=== PATIENT | female | born 1955 | race Two or more races ===

== ENCOUNTER 2018-12-21 06:30 | Day surgery (SDC) | payer OTHER ==
[~2018-12-21] VITALS: Ht 160 cm; Wt 57.1 kg
[2018-12-21] VITALS (10 sets, daily range): BP systolic 122–185; BP diastolic 56–75; PULSE 64–77; RESP 13–33; Ht 160 cm; Wt 57.1 kg
[~2018-12-21 06:30] MED LIST: BROMFENAC SODIUM 1.7 ML OPH DROP OPER SCH; LACTATED RINGER'S 1,000 ML IV SCH; MOXIFLOXACIN 0.5% 3 ML OPH OPER SCH; TETRACAINE 0.5% 4 ML OPH OPER SCH
[2018-12-21] MEDS ORDERED: BALANCED SALT SOLN 15 ML OPH IRRIG ONE (07:00)
[2018-12-21] MEDS ORDERED: LIDOCAINE 3.5% GEL TUBE OPER ONE (07:00)
[2018-12-21] MEDS ORDERED: PHENYLephrine 10% 5 ML OPH ONE (07:47)
[2018-12-21] MEDS ORDERED: TETRACAINE 0.5% 4 ML OPH ONE (07:48)
[2018-12-21] MEDS ORDERED: TOBRAMYCIN/DEXAMETH 3.5 GM OPH OINT ONE (07:48)
[2018-12-21] MEDS ORDERED: ONDANSETRON 4 MG INJ IV PRN (08:00)
[2018-12-21] MEDS ORDERED: FENTAnyl 50 MCG/ML VIAL IV PRN (08:00)
[2018-12-21] MEDS ORDERED: hydrALAzine 20 MG INJ IV PRN (08:00)
[2018-12-21] MEDS ORDERED: LABETALOL HCL 20MG INJ IV PRN (08:00)
[2018-12-21] MEDS ORDERED: ALBUTEROL 0.083% (NEB) 2.5 MG/3 ML AMP HHN PRN (08:00)
[2018-12-21] MEDS ORDERED: OXYCODONE/ACETAMINOPHEN (5/325) TAB PO PRN (08:00)
[2018-12-21] MEDS ORDERED: ACETAMINOPHEN 325 MG TAB PO PRN (08:00)
[2018-12-21] MEDS ORDERED: DIPHENHYDRAMINE 50 MG INJ IV PRN (08:00)
[2018-12-21] MEDS ORDERED: ACETAMINOPHEN 500 MG TAB PO PRN (08:00)
[2018-12-21] MEDS ORDERED: FENTAnyl 50 MCG/ML VIAL ONE ×2 (08:18→08:54)
[2018-12-21] MEDS ORDERED: METOPROLOL 5 MG INJ ONE (08:18)
[2018-12-21] MEDS ORDERED: MIDAZOLAM 1 MG/ML 2 ML INJ ONE (08:22)
[2018-12-21] MEDS ORDERED: CEFAZOLIN 1 GM INJ ONE (08:26)
[2018-12-21] MEDS ORDERED: TOBRAMYCIN 0.3% 3.5 GM OPH OINT ONE (09:43)
[2018-12-21] MEDS ORDERED: NA HYALURONATE/CHONDROITIN 0.5 ML SYG RIGHT EYE ONE (09:44)
[2018-12-21] MEDS ORDERED: LIDOCAINE 1.5%/EPI MPF (SDV) 30 ML VIAL ZFS ONE (09:44)
== END 2018-12-21 11:15 | disposition home or self-care (01) ==
LOC: SDS 06:30
PROVIDERS: ATTEND Ophthalmology
DX: H40.211 Acute angle-closure glaucoma, right eye (principal)
CPT/HCPCS: 66180; C1889; J0690; J2250; J3010; J7120; Z7512; Z7610